=== PATIENT | male | born 2000 | race Caucasian/White ===

== ENCOUNTER 2023-03-11 11:51 | Emergency (ER) | payer OTHER, BC ==
[2023-03-11 12:10] VITALS: BP 113/60; PULSE 77
[2023-03-11] MEDS: Acetaminophen/HYDROcodone 325-10 MG Tab PO ONE (12:35)
== END 2023-03-11 13:03 | disposition home or self-care (01) ==
LOC: VM.ED 11:51
DX: S52.022A Displaced fracture of olecranon process without intraarticular extension of left ulna, initial encounter for closed fracture (principal); W17.89XA Other fall from one level to another, initial encounter; Y92.410 Unspecified street and highway as the place of occurrence of the external cause
CPT/HCPCS: 29105; 73080-LT; 99283; A9270-GY